=== PATIENT | female | born 1955 | race Caucasian/White ===

== ENCOUNTER 2022-02-06 10:14 | Outpatient (CLI) | payer MEDICARE, SELFPAY | END 2022-02-06 10:15 | disposition home or self-care (01) | LOC: FRMREF 10:15 | PROVIDERS: Visit Provider Obstetrics & Gynecology | DX: N95.0 Postmenopausal bleeding (principal) | CPT/HCPCS: 84443 ==

== ENCOUNTER 2022-02-13 15:32 | Outpatient (CLI) | payer MEDICARE, SELFPAY ==
--- NOTE | 2022-02-13 16:00 | CRLHL7_ITS ---
For Patients: As a result of the Century Cures Act, medical imaging exams and procedure reports are released immediately into your electronic medical record. You may view this report before your referring provider. If you have questions, please contact your health care provider. INDICATION: Postmenopausal bleeding TECHNIQUE: Ultrasound pelvis transabdominal and transvaginal for better assessment or to better visualize the endometrium. Real time sonographic images with Spectral and color Doppler imaging of the ovaries were obtained. COMPARISON: None FINDINGS: Uterus: 0.4 centimeter x 2.6 centimeter x 3.5 centimeter. Normal echotexture of the myometrium. No masses. Endometrium: Transvaginal imaging was performed to better evaluate the endometrium. The endometrium is thickened at 1.2 centimeter, heterogeneous in appearance with multiple probable endometrial cysts. Right ovary: Not visualized. Left ovary: 2.4 centimeter x 2.5 centimeter x 2.3 centimeter. No ovarian or adnexal masses. Normal arterial and venous blood flow. Cul-de-sac: No significant free fluid. IMPRESSION: Reach him up to 12 millimeters. Then reduce heterogeneous appearance with multiple endometrial cystic lesions. Dictated by Chinedu Hannon MD @ 02/13/2022 5:10:27 PM (Electronically Signed)
== END 2022-02-13 15:33 | disposition home or self-care (01) ==
PROVIDERS: Visit Provider Obstetrics & Gynecology
DX: N95.0 Postmenopausal bleeding (principal); N85.8 Other specified noninflammatory disorders of uterus
CPT/HCPCS: 76830; 76856

== ENCOUNTER 2022-02-27 15:12 | Outpatient (CLI) | payer MEDICARE, SELFPAY ==
[2022-02-27 21:48] LABS: Chloride* 104 mmol/L (96-114)
[2022-02-27 21:49] LABS: Potassium* 4.2 mmol/L (3.6-5.1); Sodium* 138 mmol/L (135-149)
[2022-02-27 21:51] LABS: Creatinine* 0.7 mg/dL (0.5-1.5); Estimated Glomerular Filt Rate 95 ml/min
[2022-02-27 21:52] LABS: Blood Urea Nitrogen* 22 mg/dL (7-30); Calcium* 9.6 mg/dL (8.4-10.6); Carbon Dioxide* 31 mmol/L (20-32); Glucose* 93 mg/dL (60-115)
== END 2022-02-27 15:13 | disposition home or self-care (01) ==
LOC: FRMREF 15:13
PROVIDERS: PCP Family Medicine; Visit Provider Family Medicine
DX: Z01.818 Encounter for other preprocedural examination (principal)
CPT/HCPCS: 80048

== ENCOUNTER 2022-03-05 09:13 | Day surgery (SDC) | payer MEDICARE, SELFPAY ==
[2022-03-05] VITALS (7 sets, daily range): BP systolic 104–157; BP diastolic 67–89; PULSE 65–78; RESP 16; TEMP 36.8–36.9; O2SAT 93–100; BMI 24.3
[2022-03-05] MEDS: SODIUM CHLORIDE 0.9 % (FLUSH) 10 ML SYRINGE IVF (09:45)
[2022-03-05] MEDS: LACTATED RINGERS 1000 ML 1,000 ML 100 ML IV (09:45)
[2022-03-05 10:01] LABS: Hemoglobin* 15.1 gm/dL (12.0-16.0)
[2022-03-05 10:22] LABS: Creatinine* 0.7 mg/dL (0.5-1.5); Est. Creatinine Clearance* 49.12; Estimated Glomerular Filt Rate 95 ml/min
--- NOTE | 2022-03-05 11:43 | PM.PROC ---
Procedure Note Time Seen by Provider: 11:43 Date Seen: 03/05/22 Date of procedure: 03/05/22 Will [facility] bill your pro fee for this procedure?: Yes Procedure: use hysteroscopy with morcellator Procedure Description: Preoperative diagnosis: 66 year-old [id number] postmenopausal bleeding TANA Pap smear, negative HPV Postoperative diagnosis: Same Procedure: Colposcopy with cervical biopsy, Endocervical curetting. Hysteroscopy, Dilation and Curettage using the Truclear incisor Anesthesia: Conscious sedation, paracervical block. Surgeon: Conchis Sullivan MD [employer] Technician: None Estimated blood loss: 10 mL Specimen: Cervical biopsy x2: 1. 6 o'clock, 2. 9 o'clock 3. ECC and Endometrial curettings to pathology. Findings: Exam under anesthesia: Uterus: Retroverted position, less than less than 10 week sized, mobile, with no masses or nodularity palpable. Uterus sounded to 9 cm. No adnexal masses or nodularity palpable. On colposcopy: The cervix was extremely stenotic. The colposcopy was not satisfactory as the position zone was not visualized on the ectocervix. On hysteroscopy: A large endometrial polyp that filled the entire cavity was visualized. The polyp was removed the cavity appeared atrophic/normal. On ultrasound the polyp measured 3 cm in its largest diameter. Procedure: An institutional consent form was reviewed and signed with patient for hysteroscopy, dilation curettage with ultrasound guidance, colposcopy, possible cervical biopsy or biopsies and endocervical curetting,prior to her moving back to the operating room. Wayne was taken to the operating operating room more conscious sedation was found to be adequate. The patient was placed on in the dorsal lithotomy position and an exam under anesthesia was performed with findings stated above. No vaginal prep was performed for the colposcopy. A sterile, Daniella, bivalve speculum was advanced into the vaginal canal. The cervix was visualized and noted to have a very stenotic os. Ascetic acid was applied to the cervix and colposcopy performed including a green filter. There was thin aceto-white change noted at 6 and 9 o'clock positions. No papillations, punctation or mosaicism identified. Biopsies at 6 and 9 o'clock were taken. An endocervical curetting was performed. After the colposcopy was completed a vaginal prep with Betadine prep of the vaginal canal and urethral meatus was performed prior to the hysteroscopy with D&C. A Rapp catheter was inserted in the patient's bladder and the bladder filled with 300 mL of saline. An tar processing technician from radiology performed an abdominal pelvic ultrasound during the dilation procedure in order to prevent a false passage from being formed. A bivalve speculum was placed in the vagina. The cervix appears postmenopausal and very stenotic. Otherwise no abnormalities. The paracervical block was placed using 0.5% Marcaine, 5 mL was injected at the 4 and 8 o'clock positions on the cervix. The Anterior lip of the cervix was grasped with a single-toothed tenaculum. The cervix dilated to Hegar 6. The uterus sounded to 9 cm. The Truclear hysteroscope was advanced into the uterus. A diagnostic hysteroscopy was performed with normal saline as the insufflation medium. Findings are stated above. The Truclear incisor was then advanced through the camera. The curettage was performed with the incisor over an approximately 3 minutes. The incisor was then removed. The endometrial cavity appeared normal. Saline deficit at the end of the procedure 30 mL. Total saline used 900 mL. Nothing was was needed for hemostasis. The hysteroscope, Allis clamp and speculum were removed from the vaginal canal. The patient tolerated the procedure well. Sponge, lap and instrument counts were correct x2 at the end of the procedure. The patient was taken to the recovery area in stable condition. Surgeon: Conchis Sullivan MD
[2022-03-05] MEDS: BUPIVACAINE 0.5% 30 ML INJECTION (12:15)
--- NOTE | 2022-03-05 12:18 | W.ANESCHARGE ---
Anesthesia Charges Start Date/Time Anesthesia Start Date: 03/05/22 Anesthesia Start Time: 11:55 Stop Date/Time Anesthesia Stop Date: 03/05/22 Anesthesia Stop Time: 12:52 Summary Emergency: No
[2022-03-05] MEDS: KETOROLAC 30 MG/ML inj IVP (13:15)
== END 2022-03-05 13:57 | disposition home or self-care (01) ==
PROVIDERS: PCP Family Medicine; Visit Provider Obstetrics & Gynecology
PROC: 0UDB8ZZ Extraction of Endometrium, Via Natural or Artificial Opening Endoscopic (ICD-10-PCS; CPT 58558; principal; 2022-03-05 12:15)
PROC: 0UJH8ZZ Inspection of Vagina and Cul-de-sac, Via Natural or Artificial Opening Endoscopic (ICD-10-PCS; CPT 57454; 2022-03-05 12:15)
DX: N95.0 Postmenopausal bleeding (principal); R87.610 Atypical squamous cells of undetermined significance on cytologic smear of cervix (ASC-US); N84.0 Polyp of corpus uteri; C54.1 Malignant neoplasm of endometrium
CPT/HCPCS: 57454; 58558; 00952; 36415; 76857; 76998; 82565; 85018; 86850; 86900; 86901; 88305; 88341; 88342; 88360; 88377; J1885; J2250; J2704; J3010; J3490; J7120

== ENCOUNTER 2022-03-13 19:01 | Outpatient (CLI) | payer MEDICARE, SELFPAY ==
[2022-03-13 21:27] LABS: Creatinine* 0.7 mg/dL (0.5-1.5); Estimated Glomerular Filt Rate 95 ml/min
[2022-03-16 00:20] LABS: Cancer Antigen 125 42 U/mL (<=38)
== END 2022-03-13 19:02 | disposition home or self-care (01) ==
PROVIDERS: PCP Family Medicine; Visit Provider Obstetrics & Gynecology
DX: C55 Malignant neoplasm of uterus, part unspecified (principal)
CPT/HCPCS: 82565; 86304

== ENCOUNTER 2022-03-14 12:01 | Outpatient (CLI) | payer MEDICARE, SELFPAY ==
--- NOTE | 2022-03-14 13:00 | CRLHL7_ITS ---
For Patients: As a result of the Century Cures Act, medical imaging exams and procedure reports are released immediately into your electronic medical record. You may view this report before your referring provider. If you have questions, please contact your health care provider. Indication: CARCINOSARCOMA OF THE UTERUS Technique: Postcontrast CT chest, abdomen and pelvis. Oral water. 98 cc Isovue 370 intravenous contrast. Please note that all CT scans at this facility use dose modulation, iterative reconstruction, and/or weight-based dosing when appropriate to reduce radiation dose to as low as reasonably achievable. Comparison: Pelvic ultrasound 03/05/2022, 02/13/2022 Findings: In the chest, the lungs are clear. No infiltrate or edema. No effusion or pneumothorax. No pulmonary mass or nodule. No mediastinal, hilar or axillary adenopathy. Thoracic inlet is normal. No fracture. In the abdomen, there is a 6 millimeters cyst within the right hepatic lobe. No suspicious intrahepatic lesion. No stigmata of cirrhosis. The adrenal glands are normal. Normal kidneys. Unremarkable spleen. Incidental splenule. Normal pancreas. Gallbladder is incompletely distended. No calcified gallstones. No biliary obstruction. Mild vascular calcifications in the aorta. No enlarged retroperitoneal or mesenteric lymph nodes. In the pelvis, there is a circumscribed collection of low density fluid posterior to the lower uterine segment and anterior to the rectum measuring 3.4 x 1.9 cm. The endometrium is likely similar to the most recent ultrasound. Left ovarian cysts are present measuring up to 1.7 cm. Focus of calcification associated with the left ovary. The right ovary is somewhat diminutive and is located more posteriorly. Sigmoid diverticulosis. No diverticulitis or bowel obstruction. Normal appendix. Sub centimeter right common iliac chain lymph node measuring 7 millimeters, series 2, slice 24. Bladder appears normal. Severe degenerative joint disease at the right hip and moderate degenerative joint disease of the left hip. Severe degenerative disc disease L5-S1 and on the right at L4-5. No fracture. Impression: Likely similar appearance of the endometrium compared to the most recent ultrasound. There is a circumscribed ovoid collection of indeterminate low-density fluid in the posterior cul-de-sac measuring 3.4 x 1.9 cm. Sub centimeter right common iliac lymph node measuring 7 millimeters. Multiple left ovarian cysts. Diminutive right ovary containing a tiny subcentimeter cyst. No intrathoracic metastatic disease. No suspicious intrahepatic lesion. No upper abdominal adenopathy. Please note that all CT scans at this facility use dose modulation, iterative reconstruction, and/or weight-based dosing when appropriate to reduce radiation dose to as low as reasonably achievable. Dictated by Chinedu Dinh MD @ 03/15/2022 3:39:10 PM (Electronically Signed)
== END 2022-03-14 12:02 | disposition home or self-care (01) ==
LOC: CT 12:02
PROVIDERS: PCP Family Medicine; Visit Provider Obstetrics & Gynecology
DX: C55 Malignant neoplasm of uterus, part unspecified (principal); N83.202 Unspecified ovarian cyst, left side
CPT/HCPCS: 71260; 74177; Q9967

== ENCOUNTER 2022-12-02 15:23 | Outpatient (CLI) | payer MEDICARE, SELFPAY | END 2022-12-02 15:24 | disposition home or self-care (01) | LOC: NFLDREF 12-04 14:02 | PROVIDERS: PCP Family Medicine; Referring Provider Family Medicine; Visit Provider Family Medicine | DX: C55 Malignant neoplasm of uterus, part unspecified (principal) | CPT/HCPCS: 80053 ==

== ENCOUNTER 2023-04-04 12:28 | Outpatient (RCR) | payer MEDICARE, SELFPAY ==
[2022-09-04 11:58] LABS: Basophils Percent Auto 0.5 % (0.0-3.0); Eosinophils Percent Auto 0.5 % (0.0-7.0); Hematocrit 35.3 % (33.0-51.0); Hemoglobin* 10.8 gm/dL (12.0-16.0); Immature Granulocytes Pct Auto 0.2 %; Lymphocytes Percent Auto 24.5 % (20-44); Mean Corpuscular HGB Conc 31 gm/dL (32-36); Mean Corpuscular Hemoglobin 36 pg (26-34); Monocytes Percent Auto 9.1 % (0.0-11.0); Neutrophils Percent Auto 65.2 % (42.0-72.0); Platelet Count* 185 K/uL (140-440); RDW Coefficient of Variation % 17.3 % (11.5-15.5); Red Blood Count 2.99 m/uL (4.00-5.20); White Blood Count* 4.41 K/uL (4.50-11.00)
[2022-09-04 12:07] LABS: Albumin* 4.3 g/dL (3.3-5.0); Chloride* 101 mmol/L (96-114)
[2022-09-04 12:08] LABS: Potassium* 3.8 mmol/L (3.6-5.1); Sodium* 136 mmol/L (135-149)
[2022-09-04 12:10] LABS: Alkaline Phosphatase* 98 U/L (40-150); Aspartate Amino Transferase* 27 U/L (12-35); Bilirubin Total* 0.4 mg/dL (0.1-1.5); Blood Urea Nitrogen* 20 mg/dL (7-30); Carbon Dioxide* 29 mmol/L (20-32); Creatinine* 0.8 mg/dL (0.5-1.5); Estimated Glomerular Filt Rate 81 ml/min; Total Protein* 6.9 g/dL (6.0-8.3)
[2022-09-04 12:11] LABS: Alanine Aminotransferase* 19 U/L (4-35); Calcium* 9.1 mg/dL (8.4-10.6); Glucose* 93 mg/dL (60-115)
[2022-09-04 13:08] LABS: Mean Corpuscular Volume 118 fL (80-100); Slide Review Reflex No
[2023-04-04 12:53] LABS: Basophils Percent Auto 0.7 % (0.0-3.0); Hematocrit 38.9 % (33.0-51.0); Hemoglobin* 12.8 gm/dL (12.0-16.0); Immature Granulocytes Pct Auto 0.3 %; Lymphocytes Percent Auto 15.4 % (20-44); Mean Corpuscular HGB Conc 33 gm/dL (32-36); Mean Corpuscular Hemoglobin 32 pg (26-34); Mean Corpuscular Volume 99 fL (80-100); Monocytes Percent Auto 10.4 % (0.0-11.0); Neutrophils Percent Auto 71.2 % (42.0-72.0); Platelet Count* 162 K/uL (140-440); RDW Coefficient of Variation % 12.3 % (11.5-15.5); Red Blood Count 3.95 m/uL (4.00-5.20); White Blood Count* 2.99 K/uL (4.50-11.00)
[2023-04-04 13:00] LABS: Slide Review Reflex No
[2023-04-04 13:08] LABS: Albumin* 4.4 g/dL (3.3-5.0); Chloride* 102 mmol/L (96-114); Potassium* 4.2 mmol/L (3.6-5.1); Sodium* 137 mmol/L (135-149)
[2023-04-04 13:10] LABS: Anion Gap 5 mEq/L (7-15); Bilirubin Total* 0.7 mg/dL (0.1-1.5); Carbon Dioxide* 30 mmol/L (20-32); Creatinine* 0.8 mg/dL (0.5-1.5); Estimated Glomerular Filt Rate 80 ml/min
[2023-04-04 13:11] LABS: Alanine Aminotransferase* 16 U/L (4-35); Alkaline Phosphatase* 87 U/L (40-150); Aspartate Amino Transferase* 24 U/L (12-35); Blood Urea Nitrogen* 18 mg/dL (7-30); Calcium* 9.2 mg/dL (8.4-10.6); Glucose* 113 mg/dL (60-115); Total Protein* 7.3 g/dL (6.0-8.3)
== END 2024-04-03 08:06 | disposition home or self-care (01) ==
LOC: LAB 12:28
PROVIDERS: PCP Family Medicine; Visit Provider Nurse Practitioner
DX: C54.1 Malignant neoplasm of endometrium (principal)
CPT/HCPCS: 36415; 80053; 85025

== ENCOUNTER 2023-06-18 10:22 | Outpatient (CLI) | payer MEDICARE, SELFPAY | END 2023-06-18 10:23 | disposition home or self-care (01) | LOC: FRMREF 10:24 | PROVIDERS: PCP Family Medicine; Visit Provider Obstetrics & Gynecology | DX: Z09 Encounter for follow-up examination after completed treatment for conditions other than malignant neoplasm (principal); Z85.42 Personal history of malignant neoplasm of other parts of uterus | CPT/HCPCS: 80053 ==

== ENCOUNTER 2023-09-30 10:20 | Outpatient (CLI) | payer MEDICARE, SELFPAY | END 2023-09-30 10:21 | disposition home or self-care (01) | LOC: NFLDREF 10-01 10:35 | PROVIDERS: Referring Provider Family Medicine; Visit Provider Obstetrics & Gynecology | DX: C55 Malignant neoplasm of uterus, part unspecified (principal) | CPT/HCPCS: 80053 ==